=== PATIENT | female | born 1945 | race Caucasian/White ===

== ENCOUNTER 2024-06-06 05:59 | Day surgery (SDC) | payer MEDICARE ==
[2024-06-02 15:45] VITALS: BMI 28.3
[2024-06-06 07:11] LABS: Hematocrit 39.8 % (34.9-44.5); Hemoglobin 14.6 g/dL (12.0-15.5)
[2024-06-06 07:32] LABS: Anion Gap 15 mmol/L (10-20); BUN (Urea Nitrogen) 13 mg/dL (9.8-20.1); Calc. Creatinine Clearance 84 mL/min (70-130); Carbon Dioxide 23 mmol/L (23-31); Chloride 101 mmol/L (98-107); Estimated GFR 90; Glucose 110 mg/dL (83-110); Potassium 3.6 mmol/L (3.5-5.1); Sodium 135 mmol/L (136-145)
[2024-06-06] MEDS ORDERED: EPINEPHrine 1 MG/ML VIAL ONE (08:22)
[2024-06-06] MEDS ORDERED: Ondansetron PF 4 MG/2 ML Vial ONE (08:28)
[2024-06-06] MEDS ORDERED: Midazolam HCl 2 mg/2 ml Vial ONE (08:28)
[2024-06-06] MEDS ORDERED: Rocuronium Bromide 10 MG/ML (10ML VIAL) ONE (08:28)
[2024-06-06] MEDS ORDERED: fentaNYL 50 mcg/mL 1 mL Vial ONE (08:28)
[2024-06-06] MEDS ORDERED: SUGAMMADEX SODIUM 200 MG/2 ML VIAL ONE (08:28)
[2024-06-06] MEDS ORDERED: Dexamethasone 20 MG/5 ML VIAL ONE (08:28)
[2024-06-06] MEDS ORDERED: PROPOFOL 20 ML ONE (08:28)
[2024-06-06] MEDS ORDERED: Glycopyrrolate 0.2 MG/ML 5 ML SYRINGE ONE (08:46)
== END 2024-06-06 11:10 | disposition home or self-care (01) ==
LOC: CSHSDC 05:59
PROVIDERS: ATTEND Otolaryngology Otolaryngic Allergy
PROC: 0CBR8ZX Excision of Epiglottis, Via Natural or Artificial Opening Endoscopic, Diagnostic (ICD-10-PCS; principal; 2024-06-06)
PROC: 0CBV8ZX Excision of Left Vocal Cord, Via Natural or Artificial Opening Endoscopic, Diagnostic (ICD-10-PCS; 2024-06-06)
DX: C32.2 Malignant neoplasm of subglottis (principal); J38.7 Other diseases of larynx; I10 Essential (primary) hypertension; J45.909 Unspecified asthma, uncomplicated; E03.9 Hypothyroidism, unspecified; F41.9 Anxiety disorder, unspecified; E78.5 Hyperlipidemia, unspecified; F17.210 Nicotine dependence, cigarettes, uncomplicated; Z79.01 Long term (current) use of anticoagulants; Z79.899 Other long term (current) drug therapy; Z90.710 Acquired absence of both cervix and uterus; Z90.89 Acquired absence of other organs; Z88.1 Allergy status to other antibiotic agents; Z88.8 Allergy status to other drugs, medicaments and biological substances
CPT/HCPCS: 31536; 80048; 85014; 85018; 93005; J0171; J1100; J2250; J2405; J2704; J3010; 36415; 88305; 88331; 93010